=== PATIENT | male | born 1975 | race Caucasian/White ===

== ENCOUNTER 2019-03-24 02:50 | Inpatient (IN) | payer OTHER ==
[~2019-03-24] VITALS: Ht 188 cm; Wt 125.8 kg
--- NOTE | 2019-03-24 01:13 | NUR ---
Met with Stacie and his Stacie. States he has had cellulitis several time over the last 7 years. He is self employed and states he is able to go home and rest on dc. states he will do this. Denies use of dme and denies need for assistance to go home safely when improved.
[2019-03-24] MEDS ORDERED: LISINOPRIL30 MG PO (02:57)
--- NOTE | 2019-03-24 07:07 | NUR ---
PT ARRIVED TO UNIT VIA STRETCHER AND ABLE TO SELF TRANSFER. NO ACUTE DISTRESS AND ON ROOM AIR. HR 115-120, HTN. AAO4. LUNGS CLEAR. BOWEL TONES ACTIVE. REDNESS AND WARMTH TO RLE, OUTLINED. PAIN 3/0 AND STATES TOLERABLE. ADDITIONAL IV SITE PLACED AND LR BOLUS INFUSING. VANCO INFUSING AND WNL. PT ORIENTED TO ROOM. SAFETY AND FALL PREVENTION GIVEN. EDUCATION ON S/SX WITHDRAWL GIVEN. CALL LIGHT WITHIN REACH.
--- NOTE | 2019-03-24 07:30 | NUR ---
PATIENT RESTING IN BED WITH HIS AT BEDSIDE. PATIENT SHIFT REPORT RECIEVED FROM RAILWAY SHUNTER RN. PATIENT DENEIS ANY NEEDS AT THIS TIME. WILL CONTINUE TO CLOSELY MONITOR.
--- NOTE | 2019-03-24 08:48 | NUR ---
PATIENT SHIFT ASSESSMENT COMPLETED. PATIENT BREATH SOUNDS CLEAR AND PATIENT IS ON ROOM AIR. BOWEL TONES ACTIVE. PATIENT DENEIS ABD TENDERNESS. BREAKFAST ORDERED. PATIENT WAS ABLE TO WALK INTO BATHROOM AND VOID WITH NO ISSUES. PATIENT NOTED TO BE SWEATING. TEMP 98.3. PATIENTS RIGHT LOWER LEG RED AND WARM. REDDNESS OUTLINED THIS AM UPON ADMISSION. PATIENT STATES LEG IS TENDER. GOOD PERIPHERAL PULSES NOTED. 1+ SWEELING IN RIGHT LOWER EXTREMITY. PATIENT IS ALERT AND PLEASANT. FRESH ICE WATER AT THE BEDSIDE. MEDICATIONS ADMINISTERED. WILL CONTINUE TO CLOSELY MONITOR.
--- NOTE | 2019-03-24 10:45 | NUR ---
PATIENT RESTING IN BED WITH HIS AT THE BEDSIDE. PATIENT DENIES ANY NEEDS AT THIS TIME. FRESH ICE WATER AT THE BEDSIDE. VISITORS IN WITH PATIENT. WILL CONTINUE TO CLOSELY MONITOR.
--- NOTE | 2019-03-24 12:36 | NUR ---
PATIENT RESTING IN BED. ASSESSMENT COMPLETED AND REMAINS UNCHANGED FROM PRIOR ASSESSEMENT. PATIENT REQUESTING TO TAKE A NAP SINCE HE DID NOT GET ANY REST LAST NIGHT WITH COMING TO THE ER AND GETTING ADMITTED IN THE MIDDLE OF THE NIGHT. NO OTHER NEEDS AT THIS TIME. PATIENTS HEADING HOME FOR AWHILE. WILL CONTINUE TO CLOSELY MONITOR.
--- NOTE | 2019-03-24 14:15 | NUR ---
PATIENT CALLED AND STATED HE WAS GETTING COLD. TEMP 99.6. WILL CONTINUE TO CLOSELY MONITOR. FRESH WATER PROVIDED AT THE BEDSIDE. PATIENT RESTING ON/OFF THROUGHOUT THE AFTERNOON.
--- NOTE | 2019-03-24 15:45 | NUR ---
CHECKED TEMP SEVERAL TIMES IN LAST HOUR HALF AND TEMP IS AROUND 99.6. PATIENT STILL FEELS COLD AT THIS TIME AND IS ACHY. GAVE PRN TYLENOL. WILL CONTINUE TO CLOSELY MONITOR. PATIENT CONTINUES TO DENY FOOD, BUT IS TOLERATING WATER WELL. PATIENT UP TO USE URINAL AT THE BEDSIDE. WILL CONTINUE TO CLOSELY MONITOR.
--- NOTE | 2019-03-24 16:30 | NUR ---
PATIENT CALLED AND STATED "IM FEELING HOT NOW, CAN YOU TURN THE HEAT DOWN". HEAT ADJUSTED AND TEMPERATURE CHECKED. PATIENT NOTED TO HAVE TEMP OF 102.9. CALLED MD ROLON. WILL GET REPEAT BLOOD CULTURES AND THEN GIVE TORADOL. VISITORS IN TO SEE PATIENT. PATIENT DENIES ANY OTHER NEEDS AT THIS TIME. WILL CONTINUE TO CLOSELY MONITOR.
[2019-03-24] MEDS ORDERED: FISH OIL 1,0001 EAC2 PO (17:29)
--- NOTE | 2019-03-24 17:29 | NUR ---
MED REC COMPLETE
--- NOTE | 2019-03-24 18:00 | NUR ---
PATIENT FEELING A LITTLE BETTER AT THIS TIME. PATIENT IS STARTING TO SWEAT AND TEMP DOWN TO 101.3 AT 1745. DINNER ORDERED. PATIENT CONTINUES TO DRINK WATER WITH NO ISSUES. PATIENT HAS HAD SEVERAL VISITORS IN AND OUT. PATIENTS AT THE BEDSIDE. PATIENTS LEG REMAINS UNCHANGED FROM PRIOR ASSESSMENTS. WILL CONTINUE TO CLOSELY MONITOR.
--- NOTE | 2019-03-24 19:14 | NUR ---
PT UP TO BATHROOM TO ATTEMPT BOWEL MOVEMENT BUT STATES I COULD ONLY PASS GAS
--- NOTE | 2019-03-24 20:10 | NUR ---
RECIEVED REPORT FROM DAYSHIFT. pt SITTING IN BED WATCHING TV. AT BEDSIDE. ASSESSMENT DONE. ABX INFUSING. CLEARED TRAY AND PROVIDED FRESH WATER. ELEVATED EXTREMITIES ON PILLOWS. NO FURTHER REQUESTS AT THIS TIME. CALL LIGHT WITHIN REACH.
--- NOTE | 2019-03-24 21:40 | NUR ---
NEW BAG OF IVF (SEE MAR). IV ABX INFUSION COMPLETE. pt REPORTED "I FEEL LIKE I HAVE A FEVER" TEMP TAKEN SEE VITALS. NO FURTHER REQUESTS AT THIS TIME. CALL LIGHT WITHIN REACH.
--- NOTE | 2019-03-24 22:43 | NUR ---
CALL LIGHT ON. pt REPORTED FEELING CHILLED, TEMP TAKEN SEE VITAL SIGNS. WARM BLANKETS PROVIDED. CALL LIGHT WITHIN REACH.
--- NOTE | 2019-03-24 23:12 | NUR ---
HIGH BLOOD PRESSURE. MD NOTIFIED. FLUIDS DECREASED TO 75ML/HR PER ORDERS. NEW MED ORDER ENTERED.
--- NOTE | 2019-03-25 00:21 | NUR ---
ALERTED BY pt's THAT pt WAS FEELING "HOT" TEMP HIGH, NOTIFIED, PRN TYLENOL GIVEN (SEE MAR). pt SHAKY AND UNSTABLE ON HIS FEET, STOOD AT BEDSIDE TO VOID. BACK IN BED. WILL CONTINUE TO MONITOR. CALL LIGHT WITHIN REACH.
--- NOTE | 2019-03-25 01:00 | NUR ---
RETOOK TEMPERATURE, DECREASED. WILL CONTINUE TO MONITOR. CALL LIGHT WITHIN REACH.
--- NOTE | 2019-03-25 02:20 | NUR ---
ROUNDED ON pt. STATED "I FEEL BETTER" TEMP RECHECKED SEE VITALS. NO REQUESTS AT THIS TIME. CALL LIGHT WITHIN REACH.
--- NOTE | 2019-03-25 04:00 | NUR ---
CALL LIGHT ON. pt UP TO VOID AND BACK TO BED, MORE STEADY ON FEET THEN EARLIER IN SHIFT. pt REPORTED A "BAD HEADACHE" PRN PAIN MED GIVEN (SEE MAR). LINENS CHANGED. WATER PROVIDED. NO FURTHER REQUESTS AT THIS TIME. CALL LIGHT WITHIN REACH. ASSESSMENT DONE.
--- NOTE | 2019-03-25 05:13 | NUR ---
ROUNDED ON pt. RESTING IN BED WITH EYES CLOSED, RESPIRATIONS REGULAR AND UNLABORED. CALL LIGHT WITHIN REACH.
--- NOTE | 2019-03-25 05:22 | NUR ---
LAB INTO DRAW. TEMP RECORDED WNL. pt REPORTED HEADACHE 2/10. NO REQUESTS AT THIS TIME. CALL LIGHT WITHIN REACH.
--- NOTE | 2019-03-25 06:18 | NUR ---
pt RESTED ON AND OFF DURING SHIFT. FEBRILE, TREATED WITH TYLENOL X1. HEADACHE TREATED WITH TORODAL X1. pt HAD BM. RLE OUTLINED. BP OUTSIDE OF PARAMETERS, LISINOPRIL STARTED PER MD ORDERS. SBA. USES CALL LIGHT APPROPRIATELY.
--- NOTE | 2019-03-25 07:02 | NUR ---
ECHO IN ROOM WITH PATIENT.
--- NOTE | 2019-03-25 07:30 | NUR ---
PATIENT SHIFT REPORT RECIEVED FROM ENGLISH ADJUNCT FACULTY RN. PATIENT RESTING IN BED AT THIS TIME WITH HIS AT THE BEDSIDE. PATIENT REPORTS A HEADACHE ABOUT 3/10 PAIN. PROVIDED WITH AN ICE PACK. WILL CONTINUE TO CLOSELY MONITOR.
--- NOTE | 2019-03-25 07:47 | NUR ---
PT RESTING IN BED. PROVIDED WITH COLD WASH CLOTH AND ICE PACK DUE TO INCREASED TEMPERATURE (SEE VITAL SIGNS) AND HEADACHE.
--- NOTE | 2019-03-25 09:00 | NUR ---
PATIENT SHIFT ASSESSMENT COMPLETED. PATIENT RESTING IN BED AT THIS TIME. BREATH SOUNDS CLEAR. BOWEL TONES ACTIVE. PATIENTS RIGHT LOWER LEG REMAINS RED, WARM, AND TENDER. OUTLINED SITE WITH A MARKER. EDEMA NOTED IN RIGHT LOWER EXTREMITY. PATIENT REPORTS A HEADACHE THIS MORNING AND THAT THE ICE PACK IS HELPING. TYLENOL PROVIDED.
--- NOTE | 2019-03-25 09:20 | NUR ---
PT RESTING IN BED. CONTINUING WITH ICEPACK FOR HEADACHE. REFUSING BREAKFAST AT THIS TIME AND STATES HE WILL USE THE CALL LIGHT FOR ANY NEEDS. WILL CONTINUE TO MONITOR.
--- NOTE | 2019-03-25 10:30 | NUR ---
VICKY SORT LINE WORKER HELPING PATIENT THIS AM. PATIENT IS FEELING BETTER SINCE THE FEVER WENT AWAY AGAIN. MD ROLON IN THIS AM TO TALK WITH THE PATIENT. WILL ELEVATED THE RIGHT LOWER EXTREMITY ON 3-4 PILLOWS TO HELP WITH EDEMA IN LEG. PATIENT IS AGREEABLE TO PLAN OF CARE. PATIENT PROVIDED WITH AN ENSURE D/T DECREASED APPETITE. NO OTHER ISSUES AT THIS TIME. WILL CONTINUE TO CLOSELY MONITOR.
--- NOTE | 2019-03-25 11:12 | NUR ---
AMBULATORY TO BATHROOM TOLERATED WELL. PT NOTES SLIGHT DIZZINESS UPON STANDING. NOW SITTING UP IN THE CHAIR.
--- NOTE | 2019-03-25 11:30 | NUR ---
PHYSICIAN ASSISTANT PSYCHIATRY INTO SEE PT AT THIS TIME
--- NOTE | 2019-03-25 12:00 | NUR ---
PATIENT SITTING UP IN THE CHAIR. PATIENT CONTINUES TO HAVE A HEADACHE. GAVE PRN TORADOL FOR HEADACHE. MEDICATIONS ADMINISTERED PER JUL. VICKY WIRE SAWYER AT THE BEDSIDE TO ASSIST PATIENT BACK TO BED AND ELEVATE HIS LEG. PATIENT CALLS APPROPRITATELY. AT BEDSIDE. WILL CONTINUE TO ENCOURAGE WATER AND ENSURES IF PATIENT DOES NOT WANT TO EAT. PATIENT HAS DECLINED BREAKFAST AND LUNCH AT THIS TIME. ASSESSMENT REMAINS UNCHANGED FROM PRIOR ASSESSMENT THIS MORNING. WILL CONTINUE TO CLOSELY MONITOR.
--- NOTE | 2019-03-25 12:46 | NUR ---
PT SITTING IN CHAIR, AT BS. PT IS ALERT, ORIENTED AND ONE CAN TELL HE IS NOT HIMSELF. PT ADMITTED HE HAS HAD PREVIOUS INFECTIONS. HAD GOOD DISCUSSION WITH PT, EXTENDED A BLESSING. WILL FOLLOW NEEDED
--- NOTE | 2019-03-25 14:21 | NUR ---
IN TO CHECK IN ON PATIENT. PATIENT SLEEPING IN BED WITH LOWER EXTREMITY ELEVATED ON PILLOWS. AT BEDSIDE AND DENIES ANY NEEDS AT THIS TIME. WILL ENCOURAGE REST D/T LACK OF SLEEP THE LAST FEW DAYS WITH CONTINUED FEVERS. MEDICATIONS ADMINISTERED. WILL CONTINUE TO CLOSELY MONITOR.
--- NOTE | 2019-03-25 16:51 | NUR ---
In and spoke with pt and . Pt complains of not feeling well, coontinues with a headache and painful leg. Denies needs for dc when improved.
--- NOTE | 2019-03-25 16:56 | NUR ---
ASSISTED PATIENT UP TO BATHROOM. PATIENT IS INDEPENDENT JUST NEEDS HELP WITH UNPLUGING CORDS. PATIENT BACK TO BED AND TOLERATED WELL. DINNER ORDERED. PATIENT NOTED TO BE A LITTLE SHAKY WITH STANDING. PATIENT HAS ALSO HAD AN ONGOING HEADACHE. PATIENT IS NOTED TO BE A 4-6 + DAILY BEER DRINKER. PATIENT DENIES HALLUCINATIONS, CLOUDINESS, AND ANXIETY. UPDATED MD ROLON. PER MD PATIENT MAY HAVE 1-2 BEERS WITH MEALS IF HE WOULD LIKE. NO OTHER NEEDS AT THIS TIME. WILL CONTINUE TO CLOSELY MONITOR.
--- NOTE | 2019-03-25 20:00 | NUR ---
AAOX4 AND RESPONDING APPROPRIATELY. SINUS RHYTHM ON MONITOR WITH HR IN 90'S. LUNGS CLEAR THROUGHOUT ON ROOM AIR. BOWEL TONES ACTIVE, DENIES NAUSEA. RLE NOTED TO BE WARM AND ANTONETTE, OUTLINED AREA, PEDAL PULSE +1, CAP REFILL LESS THAN 3 SECONDS, WITH GENERALIZED NON PITTING EDEMA. ALL OTHER PULSES +2. NO ADDITONAL EDEMA NOTED. VANCO STARTED AND IV SITE WNL. EDUCATION PROVIDED ON SAFETY AND FALL PRECAUTION. EDUCATION PROVIDED ON MEDICATION. UPDATED PLAN OF CARE. ALL QUESTIONS ANSWERED. PT AND AGREEABLE TO PLAN. CALL LIGHT WITHIN REACH.
--- NOTE | 2019-03-25 21:26 | NUR ---
SBA TO RESTROOM, LARGE LOOSE BM AND TEA COLORED 480 ML VOID. BACK TO BED. LINEN CHANGED AND NEW GOWN APPLIED. DEMONSTRATED PROPER USE OF I/S. HANDS NOTED TO BE SHAKEY. DENIES GRISSOM, AGGITATION, ANXIETY, OR HALLUCINATIONS. EDUCATION PROVIDED ON S/SX OF WITHDRAWL, VERBALIZED UNDERSTANDING. DENIES OTHER NEEDS. CALL LIGHT WITHIN REACH. AT BEDSIDE.
--- NOTE | 2019-03-25 21:40 | NUR ---
DISCUSSED ALLERGIES. PT STATES HE HAS SEVERE ALLERGY TO POULTRY WITH THROAT SWELLING. PT STATES HE IS NO ALLERGIC TO EGGS. ALLERGY LIST UPDATED AT THIS TIME.
--- NOTE | 2019-03-25 22:15 | NUR ---
CALL LIGHT ANSWERED. ROGELIOO COMPLETED AT THIS TIME. IV SITE ASSESSED AND WNL. PT DENIES OTHER NEEDS. CALL LIGHT WITHIN REACH.
--- NOTE | 2019-03-26 00:35 | NUR ---
DURING ASSESSMENT PT NOTED TO BE FEBRILE WITH ORAL TEMP OF 101.3 F AND C/O "PRESSURE IN EYES LIKE BLOOD PRESSURE HIGH." BP NOTED TO BE 169/104. PHONE CALL TO DR. ROLON PER CALL PARAMETERS. ORDER TO GIVE TYLENOL NOW, REPEAT TORADOL FOR CONTINUED FEVER, CONTINUE TO MONITOR BP, READ BACK AND VERIFIED. PRN TYLENOL GIVEN. ICE PACK GIVEN. UPDATED PT ON PLAN, AGREEABLE. NO OTHER ACUTE CHANGES TO ASSESSMENT. DENIES OTHER NEEDS. CALL LIGHT WITHIN REACH.
--- NOTE | 2019-03-26 02:49 | NUR ---
REASSESSED TEMP AND NOTED TO BE 99.3 F. DENEIS OTHER NEEDS. CALL LIGHT WITHIN REACH.
--- NOTE | 2019-03-26 04:00 | NUR ---
CALL LIGHT ANSWERED. SBA TO RESTROOM. VOIDED LARGE AMOUNT OF TEA COLORED URINE. BACK TO BED. AFEBRILE. NO ACUTE CHANGES TO ASSESSMENT. LEGS ELEVATED. DENIES OTHER NEEDS. CALL LIGHT WITHIN REACH.
--- NOTE | 2019-03-26 06:16 | EKG ---
[facility] [address] [facility] [place] [address] Signed Sinus tachycardia Left axis deviation Right bundle branch block Abnormal ECG No previous ECGs available Confirmed by SARANYA ROLON MD ([id number]) on 03/26/2019 6:16:14 AM Electronically Signed By: SARANYA ROLON MD 03/26/19 0616 PATIENT NAME: ROZINA HARLEY Electrocardiogram DATE OF : 73 PHYSICIAN: SARANYA ROLON MD REPORT #: [id number] REPORT IS CONFIDENTIAL AND NOT TO BE RELEASED WITHOUT AUTHORIZATION
--- NOTE | 2019-03-26 06:40 | NUR ---
DR. ROLON AT BEDSIDE TO ASSESS PT AND UPDATE PLAN OF CARE
--- NOTE | 2019-03-26 07:30 | NUR ---
PATIENT SHIFT REPORT RECIEVED FROM PARTS FACILITATOR RN. PATIENT RESTING IN BED WITH HIS AT THE BEDSIDE. PATIENT IS SLEEPING AT THIS TIME. PER REPORT PATIENT HAS CONTINUED TO HAVE INCREASED FEVERS THROUGHOUT THE NIGHT. WILL CONTINUE TO CLOSELY MONITOR.
--- NOTE | 2019-03-26 09:38 | NUR ---
PATIENT'S FAMILY CALLED FOR ASSISTANCE REQUESTING A TEMPERATURE BE TAKEN BECAUSE THE PATIENT STATES THAT HE IS "BURNING UP". RN NOTIFIED OF ELEVATED TEMPERATURE. PATIENT STATES HE FEELS "LIKE ITS HARD TO BREATHE" BUT THAT THIS IS "NORMAL WHENEVER I HAVE A FEVER". RN AT BEDSIDE.
--- NOTE | 2019-03-26 10:00 | NUR ---
ASSESSMENT COMPLETED. PATIENT RESTING IN BED WITH HIS RIGHT LEG ELEVATED ON PILLOWS. PATIENT LEG NOTED TO BE RED OUTSIDE OF BOARDERS UP TO HIS KNEE. ALSO WARM AND HOT. REDDNESS NOTED IN UPPER THIGH WELL. UPDATED MD ROLON. NO NEW ORDERS OR CHANGES AT THIS TIME. WILL CONTINUE TO CLOSELY MONITOR. BREATH SOUNDS PATIENT ON RA WITH SPO2 98%. BOWEL TONES ACTIVE. PATIENT DENIES ANY NEEDS AT THIS TIME. WILL CONTINUE TO CLOSELY MONITOR.
--- NOTE | 2019-03-26 11:00 | NUR ---
PATIENT CALLED FOR ASSISTANCE TO LAY BACK DOWN IN BED. PATIENT ASSISTED INTO BED, RIGHT LEG ELEVATED WITH PILLOWS. CALL LIGHT IN REACH. NO OTHER NEEDS AT THIS TIME.
--- NOTE | 2019-03-26 11:43 | NUR ---
PATIENT STILL NOTED TO HAVE A FEVER OF 100.8. GAVE PRN TYLENOL. REDDNESS ON LEG MARKED. RIGHT LOWER EXTREMITY ELEVATED ON PILLOWS PER ORDERS. PATIENT CONTINUES TO DENY WANTING FOOD AT THIS TIME. ORDERED AN ENSURE FOR PATIENT. PATIENT DRINKING WATER AND DOING WELL. PATIENT DENEIS ANY NEEDS AT THIS TIME. WILL CONTINUE TO CLOSELY MONITOR.
--- NOTE | 2019-03-26 14:00 | NUR ---
PATIENT UP TO THE SHOWER. ALL BEDDING CHANGED. PATIENT IN THE ROOM. ROOM CLEANED BY HOUSEKEEPING. LUNCH ORDERED. WILL CONTINUE TO CLOSELY MONITOR.
--- NOTE | 2019-03-26 14:46 | NUR ---
PATIENT UP TO THE CHAIR AT THIS TIME. LUNCH ARRIVED. AT THE BEDSIDE. FAMILY IN TO VISIT. PATIENT WAS ABLE TO SHOWER INDEPENDENTLY AND TOLERATED WELL. WILL CONTINUE TO CLOSELY MONITOR.
--- NOTE | 2019-03-26 17:00 | NUR ---
PATIENT RESTING IN BED WITH HIS FMAILY AT THE BEDSIDE. PATIENT CONTINUES TO FEEL MUCH BETTER THIS EVENING. PATIENT WAS ABLE TO TOLERATE EATING HIS LUNCH. THIS IS THE FIRST TIME PATIENT HAS HAD AN APPETITE. NO FEVERS THIS AFTERNOON. PATIENT DENIES WANTING ANY BEER AT THIS TIME. WILL CONTINUE TO CLOSELY MONITOR.
--- NOTE | 2019-03-26 18:13 | NUR ---
ASSISTED PATIENT UP TO THE BATHROOM. PATIENT IS LESS SHAKY THIS EVENING AND MORE AMBULATORY IN THE ROOM. PATIENT CONTINUES TO FEEL MUCH BETTER THIS EVEING. PATIENTS LEG NOTED TO BE LESS RED. NO OTHER ISSUES AT THIS TIME. DINNER ORDERED. WILL CONTINUE TO CLOSELY MONITOR.
--- NOTE | 2019-03-26 19:40 | NUR ---
REPORT RECEIVED FROM DAY SHIFT, IN TO CHECK ON PT. PT IN BED, VISITING WITH FAMILY IN ROOM. PT DENIES PAIN OR OTHER NEEDS.
--- NOTE | 2019-03-26 21:00 | NUR ---
VISITORS LEAVING, STAYING THE NIGHT. IN TO DO ASSESSMENT, PT DENIES PAIN, FEELING COLD SO TEMP CHECKED IS 98.2, TEMP TURNED UP IN ROOM. RLE IS ELEVATED UP ON PILLOWS. PT DENIES NEEDS AT THIS TIME.
--- NOTE | 2019-03-26 22:39 | NUR ---
CALLS WITH C/O FEELING LIKE HE HAS A FEVER, TEMP CHECKED IS 102.3. UP TO VOID AT BEDSIDE THEN BACK TO BED TO TRY TO SLEEP.
--- NOTE | 2019-03-27 00:21 | NUR ---
IN TO CHECK ON PT, TEMP DOWN TO 99.9 ORAL. DENIES PAIN/NEEDS.
--- NOTE | 2019-03-27 03:00 | NUR ---
PT CALLS FEELING FEVERISH, TEMP 101.1 ORAL, PRN DICLOFENAC GIVEN. PT UP TO VOID THEN BACK TO BED.
--- NOTE | 2019-03-27 05:15 | NUR ---
LAB IN TO DRAW
--- NOTE | 2019-03-27 07:00 | NUR ---
PT UP TO USE BR, HR STEADY WHEN UP.
--- NOTE | 2019-03-27 07:30 | NUR ---
PATIENT RESTING IN BED WITH HIS RIGHT LEFT ELEVATED ON PILLOWS. REPORT RECIEVED FROM PROCESS MAINTENANCE TECHNICIAN RN. PATIENT HAD SEVERAL FEVERS IN THE NIGHT. NO OTHER NEEDS AT THIS TIME. WILL CONTINUE TO CLOSELY MONITOR.
--- NOTE | 2019-03-27 07:33 | NUR ---
PT HAD AN UNEVENTFUL NIGHT, TEMP SPIKED UP TWICE AND WAS GIVEN PRN MEDS. OTHER VS STABLE, PT HAS DENIED PAIN AND BEEN ABLE TO REST.
--- NOTE | 2019-03-27 08:44 | NUR ---
PATIENT UPT OT THE BATHROOM INDEPENDENTLY AND BACK TO BED. MEDICATIONS ADMINISTERED. PATIENT LEG IS LESS RED THIS AM, BUT REMAINS WARM TO TOUCH. BOARDERS ARE OUTLINED AND HAVE NOT SPREAD THIS AM. SWELLING NOTED IN RIGHT LOWER EXTREMITY. BREATH SOUNDS CLEAR. BOWEL TONES ACTIVE. PATIENT DENIES ANY NEEDS AT THIS TIME. WILL CONTINUE TO CLOSELY MONITOR.
--- NOTE | 2019-03-27 11:00 | NUR ---
PATIENT RESTING IN BED WITH FAMILY AND FRIENDS VISITING. ICE WATER PROVIDED. PATIENT DENIES ANY NEEDS AT THIS TIME. WILL CONTINUE TO CLOSELY MONITOR.
--- NOTE | 2019-03-27 11:57 | NUR ---
VISITORS AT THE BEDSIDE. PATIENT UP TO THE BATHROOM. PATIENT IS INDEPENDENT, JUST NEEDS STAFF TO UNPLUG CORDS. PATIENT DENIES ANY NEEDS AT THIS TIME. WILL CONTINUE TO CLOSELY MONITOR. PATIENT DENIES LUNCH AT THIS TIME.
--- NOTE | 2019-03-27 14:05 | NUR ---
PATIENT HAS NEW TRANSFER ORDERS FOR MEDSURG. PATIENT AND AGREEABLE TO PLAN OF CARE. WILL CONTINUE TO CLOSELY MONITOR. NO OHTER NEEDS AT THIS TIME.
--- NOTE | 2019-03-27 15:00 | NUR ---
PATIENT REPORT GIVEN TO ZORA MERRILL. ALL QUESTIONS ANSWERED. PATIENT RESTING IN BED WITH HIS AT THIS TIME. WILL CONTINUE TO CLOSELY MONITOR.
--- NOTE | 2019-03-27 15:30 | NUR ---
PATIENT WALKED OVER TO HIS ROOM ON [place] WITH NO ISSUES. ORIENTED TO NEW ROOM AND HIS RN HERIBERTO. FRESH ICE WATER PROVIDIE. NEW IV PLACED PRIOR TO TRANSFER. OTHER IV SITES DISCONTINUED.
--- NOTE | 2019-03-27 16:05 | NUR ---
PATIENT SITTING UP IN CHAIR. IN ROOM. IV WRAPPED. SETS UP BATHROOM FOR SHOWER. CALL LIGHT WITHIN REACH. NO OTHER NEEDS AT THIS TIME
--- NOTE | 2019-03-27 18:09 | NUR ---
PATIENT RESTING IN BED. VITAL SIGNS AND I&O DONE. CALL LIGHT WITHIN REACH. NO OTHER NEEDS AT THIS TIME
--- NOTE | 2019-03-27 19:30 | NUR ---
PT RESTING IN BED, WATCHING TV. URINAL EMPTIED. IV CDI. NO NEEDS AT THIS TIME. CALL LIGHT IN REACH.
--- NOTE | 2019-03-27 20:51 | NUR ---
PT RESTING IN BED, WATCHING TV. SCHEDULED MEDS PROVIDED. ASSESSMENT COMPLETED. REDNESS APPEARS TO BE WITHIN OUTLINES. PT DENIES PAIN. CMS INTACT IN LRE. IV CDI, WNL. FLUSHED. NO OTHER NEDDS AT THIS TIME. CALL LIGTH IN REACH.
--- NOTE | 2019-03-27 21:10 | NUR ---
ROUNDED CHARGE. PATIENT IS RESTING IN BED WITH LEFT LEG ELEVATED. PATIENT DENIES ANY COMMNETS, QUESTIONS, OR CONCERNS. NO NEEDS NOTED. CALL LIGHT IN REACH.
--- NOTE | 2019-03-27 21:43 | NUR ---
CALL LIGHT ANSWERED. IV SL WNL. pt RESTING IN BED. RIGHT LEG ELEVATED. NO REQUESTS AT THIS TIME.
--- NOTE | 2019-03-27 23:38 | NUR ---
PT RESTING IN BED, EYES CLOSED. RR 12, EVEN, UNLABORED. CALL LIGHT IN REACH.
--- NOTE | 2019-03-28 02:34 | NUR ---
PT AWAKE IN ROOM. PT WARM TO TOUCH. TEMP TAKEN AND PRN PAIN/FEVER MED PROVIDED. SCHEDULED MED PROVIDED. ASSESSMENT COMPLETED. NO OTHE NEEDS AT THIS TIME. CALL LIGHT IN REACH.
--- NOTE | 2019-03-28 05:00 | NUR ---
PT RESTING IN BED, WAKES TO VOICE. PT DENIES PAIN. TEMP 99.0F ORAL. IS ENCOURAGED. V/S AND I&O COMPLETED. NO OTHER NEEDS AT THIS TIME. CALL LIGHT IN REACH.
--- NOTE | 2019-03-28 06:18 | NUR ---
PT HAS SLEPT MOST THE SHIFT. PT DENIES PAIN. EDEMA AND REDNESS TO LRE THAT HAS NOT PROGRESSED OUTSIDE THE LINES THIS SHIFT. PT AMBULATES WELL. TOLERATED IV MEDS WELL. IV CDI, WNL, FLUSHED.
--- NOTE | 2019-03-28 08:16 | NUR ---
PATIENT WAS AWAKE , OFFERED WASH RAG TO WASH FACE SAID NOT AT THIS TIME, CALL LIGHT IN REACH BREAKFAST ARRIVE, FRESH WATER WAS GIVEN.
--- NOTE | 2019-03-28 09:34 | NUR ---
FULL BODY ASSESMENT DONE, MORNING MEDICAITONS ADMINISTERED. PATIENT UP IN RECLINER EATING BREAKFAST. PATIENT REFUSED ECHO THIS MORNING UNTIL DR. PITTMAN DISCUSSED IMAGING WITH PATIENT. NOTIFIED DR. PITTMAN, VERBALIZED OKAY IF PATIENT HAS TEST DONE OUTPATIENT AND PLANS TO DC HOME TODAY.
[2019-03-28] MEDS ORDERED: METOPROLOL SUCC50 MG PO (09:52)
[2019-03-28] MEDS ORDERED: PENICILLIN V P500 MG PO (09:56)
--- NOTE | 2019-03-28 11:50 | NUR ---
PT GETTING READY FOR DC. HIS IN , PHAR COMING IN TO CONNECT WITH PT BEFORE DC. EXTENDED A BLESSING,WILL FOLLOW NEEDED
== END 2019-03-28 11:30 | disposition home or self-care (01) | DRG 872 ==
LOC: ED 02:50 → CCU 06:08 → MS 03-27 15:10
PROVIDERS: ADMIT Internal Medicine
DX: A40.1 Sepsis due to streptococcus, group B (principal); L03.115 Cellulitis of right lower limb; I47.1 Supraventricular tachycardia; I10 Essential (primary) hypertension; D69.6 Thrombocytopenia, unspecified; Z79.899 Other long term (current) drug therapy
CPT/HCPCS: 36415; 80048; 80053; 80202; 83605; 83735; 85025; 85379; 85651; 86060; 93005; 93010; 96361; 96365; 96366; 96375; 99291; 99292; J0696; J1650; J1885; J2540; J3370; J3475; J3490; J7030; J7060; J7121

== ENCOUNTER 2022-05-16 13:12 | Emergency (ER) | payer OTHER ==
[~2022-05-16] VITALS: Ht 188 cm; Wt 120.2 kg
[~2022-05-16 13:12] MED LIST: FISH OIL 1,0001 EAC2 PO; LISINOPRIL30 MG PO; METOPROLOL SUCC50 MG PO; PENICILLIN V P500 MG PO
[2022-05-16] MEDS ORDERED: LOSARTAN-HCTZ1 EACH PO (13:45)
[2022-05-16] MEDS ORDERED: FENOFIBRATE145 MG PO (13:45)
[2022-05-16] MEDS ORDERED: AMLODIPINE BESYL5 MG PO (13:45)
[2022-05-16] MEDS ORDERED: METHYLPREDNISOLO4 M1 PO (14:02)
[2022-05-16] MEDS ORDERED: HYDROCODON-ACE1 EA10 PO (14:02)
== END 2022-05-16 14:14 | disposition home or self-care (01) ==
LOC: ED 13:12
DX: M54.12 Radiculopathy, cervical region (principal); I10 Essential (primary) hypertension; Z79.899 Other long term (current) drug therapy
CPT/HCPCS: 99283; J7512

== ENCOUNTER 2024-03-26 07:54 | Emergency (ER) | payer OTHER ==
[~2024-03-26] VITALS: Ht 188 cm; Wt 130.0 kg
[~2024-03-26 07:54] MED LIST changes: +AMLODIPINE BESYL5 MG PO; +FENOFIBRATE145 MG PO; +HYDROCODON-ACE1 EA10 PO; +LOSARTAN-HCTZ1 EACH PO; +METHYLPREDNISOLO4 M1 PO
[2024-03-26] MEDS ORDERED: SIMVASTATIN20 MG PO (08:14)
[2024-03-26] MEDS ORDERED: METFORMIN HCL500 MG PO (08:14)
[2024-03-26] MEDS ORDERED: OXYCODONE/APAP 5/325 TAB PO ONE (08:30)
[2024-03-26] MEDS ORDERED: predniSONE 20 MG TAB PO ONE (08:30)
[2024-03-26] MEDS ORDERED: KETOROLAC TROMETHAMINE 60 MG/2 ML VIAL IM ONE (08:30)
[2024-03-26] MEDS ORDERED: PREDNISONE20 MG PO (09:17)
[2024-03-26] MEDS ORDERED: PERCOCET 5-3251 EACH PO (09:17)
[2024-03-26] MEDS ORDERED: KETOROLAC TROME10 MG PO (09:17)
[2024-03-26 09:28] VITALS: BP 144/97
== END 2024-03-26 09:28 | disposition home or self-care (01) ==
LOC: ED 07:54
DX: M10.9 Gout, unspecified (principal); I10 Essential (primary) hypertension; Z91.018 Allergy to other foods; Z79.84 Long term (current) use of oral hypoglycemic drugs; Z79.899 Other long term (current) drug therapy
CPT/HCPCS: 73560; 96372; 99283; J1885; J7512